=== PATIENT | male | born 1975 ===

== ENCOUNTER 2017-11-20 20:30 | Emergency (ER) | payer OTHER ==
[2017-11-20 20:39] VITALS: O2SAT 98
[2017-11-20] MEDS ORDERED: diaZEpam 10 mg/2 ml Inj IVP STA (21:06)
--- NOTE | 2017-11-20 21:12 | ED PDOC ---
HPI: Back Time Seen by Provider: 11/20/17 20:40 Chief Complaint (Nursing): Back Pain Chief Complaint (Provider): Back Pain History Per: Patient, Family (partner) History/Exam Limitations: no limitations Onset/Duration Of Symptoms: Days (x2) Current Symptoms Are (Timing): Still Present Additional Complaint(s): 42 y/o male with a PMHx of HIV presenting with partner for evaluation of lower back pain since yesterday that worsens with movement. He reports patient has been taking OTC cold/flu medication with a last dose of NyQuil 2 hours prior to arrival. Patient denies cough, fever, history of back problems or injury, falls or trauma, vomiting, dysuria, hematuria, chest pain, abdominal pain, headache, weakness, incontinence, saddle anesthesia, and numbness. Patient describes the pain as sharp, 10/10, and says it shoots across his lower and mid back. Patient also complaining of some nausea. Of note: Partner states patient was taking HIV medication for 15 years. He reports that the patient eventually developed an adverse reaction to the medication and vomits at the sight of the pill. He states the patients last dose was 9 months ago. PMD: Linwood Alvarez Past Medical History Reviewed: Historical Data, Nursing Documentation, Vital Signs Vital Signs: Last Vital Signs Temp 98.0 F 11/20/17 20:35 Pulse 88 11/20/17 20:35 Resp 16 11/20/17 20:35 BP 127/74 11/20/17 20:35 Pulse Ox 98 11/20/17 20:35 - Medical History PMH: HIV - Surgical History Surgical History: Appendectomy - Family History Family History: States: Unknown Family Hx - Social History Current smoker - smoking cessation education provided: No Alcohol: None Drugs: Denies - Home Medications Home Medications: Ambulatory Orders Medication Instructions Recorded Cyclobenzaprine [Flexeril] 10 mg PO Q8 PRN #12 tab 11/21/17 Acetaminophen [Tylenol] 1 g PO Q8H #21 capsule 11/22/17 Ibuprofen 800 mg PO Q8H #21 tablet 11/22/17 - Allergies Allergies/Adverse Reactions: Allergies Allergy/AdvReac Type Severity Reaction Status Date / Time No Known Allergies Allergy Verified 11/20/17 20:34 Review of Systems ROS Statement: Except As Marked, All Systems Reviewed And Found Negative Constitutional: Negative for: Fever, Chills Cardiovascular: Negative for: Chest Pain Respiratory: Negative for: Cough, Shortness of Breath Gastrointestinal: Positive for: Nausea. Negative for: Vomiting, Abdominal Pain Genitourinary Male: Negative for: Dysuria, Hematuria Musculoskeletal: Positive for: Back Pain Neurological: Negative for: Weakness, Numbness, Headache Physical Exam - Reviewed Nursing Documentation Reviewed: Yes Vital Signs Reviewed: Yes - Physical Exam Comments: GENERAL APPEARANCE: Patient is awake, alert, oriented x 3, in no acute distress. SKIN: Warm, dry; (-) cyanosis. EYES: (-) conjunctival pallor. ENMT: Mucous membranes moist. NECK: Supple, FROM (-) tenderness, (-) stiffness, (-) lymphadenopathy. CHEST AND RESPIRATORY: (-) rales, (-) rhonchi, (-) wheezes; breath sounds equal bilaterally. Speaking in full sentences, respirations even and nonlabored. HEART AND CARDIOVASCULAR: (-) irregularity; (-) murmur, (-) gallop. ABDOMEN AND GI: Soft; (-) tenderness (-) distention (-) guarding (-) palpable mass. (+) bilateral CVA tenderness. BACK: (+) bilateral paralumbar tenderness, (-) spasm, (-) direct bony tenderness, (-) deformity. Straight leg raise (-) bilaterally. EXTREMITIES: (-) deformity. Distal pulses good bilaterally. NEURO AND PSYCH: Mental status as above. Intact sensation bilaterally; normal strength in extension of the knees, plantar and dorsiflexion of the toes. Gait steady, speech clear. (-) facial asymmetry (-) aphasia. - Laboratory Results Result Diagrams: 11/20/17 21:59 18 21:59 Urine dip results: Positive for: Blood (trace), Ketones (trace), Bilirubin ( small), Protein (30). Negative for: Leukocyte Esterase, Nitrate, Glucose - ECG O2 Sat by Pulse Oximetry: 98 (RA) Pulse Ox Interpretation: Normal Medical Decision Making Medical Decision Makin:06 Impression: Acute back pain Plan: --EKG --CMP --Lipase --Urine dipstick --CBC --CXR --1LNS --Toradol 30mg IVP --Valium 5mg PO --Blood culture --IV insertion --Influenza A B --HIV-1, RNA --Reevaluation 0 EKG reviewed; NSR @ 66bpm (-) ST elevations, QTc 404 Udip reviewed. Urine culture and urinalysis ordered. CXR reviewed: no acute infiltrate as read by Luis ANTHONY Patient notified official radiology read will be available in 24 hours and that he will be notified of any discrepancies via phone. 2240 Urinalysis: unremarkable Flu: Negative Upon re-evaluation, patient reports nausea, epigastric abdominal pain. Patient reports no relief of back pain with Toradol and Valium. Morphine 2mg and Zofran 4mg IVP ordered. CT abd/pel with IV contrast ordered. 0005 CT reviewed, radiology report follows EXAM: CT Abdomen and Pelvis With Intravenous Contrast EXAM DATE/TIME: 11/20/2017 10:48 PM CLINICAL HISTORY: 42 years old, male; Pain; Abdominal pain; Epigastric; Prior surgery; Surgery date: 6+ months; Surgery type: Appendectomy; Additional info: Epigastric abd pain, back pain TECHNIQUE: Axial computed tomography images of the abdomen and pelvis with intravenous contrast. All CT scans at this facility use one or more dose reduction techniques, viz.: automated exposure control; ma/kV adjustment per patient size (including targeted exams where dose is matched to indication; i.e. head); or iterative reconstruction technique. CONTRAST: 90 ml of administered intravenously. COMPARISON: No relevant prior studies available. FINDINGS: Lower thorax: Minimal bilateral lower lobe bronchiectasis with some dependent atelectasis. Mild right middle lobe and to a lesser degree lingular atelectasis or scar. ABDOMEN: Liver: Slight periportal edema in the liver. Gallbladder and bile ducts: Normal. No calcified stones. No ductal dilation. Pancreas: Normal. No ductal dilation. Spleen: Normal. No splenomegaly. Adrenals: Normal. No mass. Kidneys and ureters: Normal. No hydronephrosis. Stomach and bowel: Upper normal segments of fluid-filled small bowel, primarily proximal which are nonspecific and likely transient. Appendix: The appendix is not seen. PELVIS: Bladder: Unremarkable as visualized. Reproductive: Unremarkable as visualized. ABDOMEN and PELVIS: Intraperitoneal space: Normal. No free air. No significant fluid collection. Bones/joints: No acute fracture. No dislocation. Soft tissues: Unremarkable. Vasculature: Normal. No abdominal aortic aneurysm. Lymph nodes: Upper normal right lower quadrant pericolonic node. IMPRESSION: 1. Minimal bilateral lower lobe bronchiectasis mild right middle lobe and lingular atelectasis or scar. 2. Upper normal segments of fluid-filled primarily proximal small bowel which are nonspecific. Mild enteritis is not excluded. 3. Otherwise negative CT abdomen/pelvis. Thank you for allowing us to participate in the care of your patient. Dictated and Authenticated by: Ron Archuleta MD 11/21/2017 12:03 AM Eastern Time ([place] & [place]) 0020 On re-evaluation, patient reports improvement of symptoms. Patient remains AAOx3 , in no acute distress. On exam, neck is supple, lungs CTA, cardiac RRR, abdomen is soft and non-tender, neuro exam shows no focal findings. VSS, stable for discharge. Diagnostic results d/w the patient in great detail. Dx of acute back and abdominal pain d/w the patient. Based on history, exam and diagnostic results plan will be for discharge and outpatient follow up. Advised to follow up with primary care physician in 1-2 days without fail. Advised to take medication as prescribed. Return to the emergency room at any time for any new or worsening symptoms. Patient states he fully agrees with and understands discharge instructions. States that he agrees with the plan and disposition. Verbalized and repeated discharge instructions and plan. I have given the patient opportunity to ask any additional questions. Scribe Attestation: Documented by Jose Rafael Aiken, acting as a scribe for Lilliam Smith PA-C. Provider Scribe Attestation: All medical record entries made by the scribe were at my direction and personally dictated by me. I have reviewed the chart and agree that the record accurately reflects my personal performance of the history, physical exam, medical decision making, and the department course for this patient. I have also personally directed, reviewed, and agree with the discharge instructions and disposition. Disposition - Clinical Impression Clinical Impression: Back pain, Abdominal pain, Muscle spasm of back - Patient ED Disposition Is Patient to be Admitted: No Counseled Patient/Family Regarding: Studies Performed, Diagnosis, Need For Followup, Rx Given - Disposition Referrals: Linwood Alvarez MD [Staff Provider] - Disposition: Routine/Home Disposition Time: 00:29 Condition: STABLE Additional Instructions: FOLLOW UP WITH PMD IN 1-2 DAYS WITHOUT FAIL. RETURN TO ED WITH ANY NEW OR WORSENING SYMPTOMS. Prescriptions: Cyclobenzaprine [Flexeril] 10 mg PO Q8 PRN #12 tab PRN Reason: Muscle Spasm Instructions: Low Back Pain in Adults, Acute Abdomen (Belly Pain), Adult (DC), Upper Back Pain Forms: [employer] (Lithuanian) Print Language: ALBANIAN - POA Present On Arrival: None Results - Lab Results Lab Results: 11/20/17 11/20/17 11/20/17 21:59 21:59 21:15 WBC 7.6 RBC 5.00 Hgb 13.5 Hct 40.4 MCV 80.8 MCH 27.0 MCHC 33.4 RDW 13.8 Plt Count 231 MPV 8.4 Neut % (Auto) 60.5 Lymph % (Auto) 24.9 [place] % (Auto) 12.7 H Eos % (Auto) 1.5 Baso % (Auto) 0.4 Neut # (Auto) 4.6 Lymph # (Auto) 1.9 [place] # (Auto) 1.0 H Eos # (Auto) 0.1 Baso # (Auto) 0.0 Sodium 143 Potassium 4.0 Chloride 103 Carbon Dioxide 26 Anion Gap 18 BUN 16 Creatinine 0.8 Est GFR ( Amer) > 60 Est GFR (Non-Af Amer) > 60 Random Glucose 101 Calcium 9.4 Total Bilirubin 0.6 AST 25 ALT 30 Alkaline Phosphatase 63 Total Protein 8.7 H Albumin 4.4 Globulin 4.3 H Albumin/Globulin Ratio 1.0 Lipase 36 Urine Color Lyn Urine Clarity Slighty-cloudy Urine pH 5.0 Ur Specific [place] 1.046 H Urine Protein 30 Urine Glucose (UA) Neg Urine Ketones Negative Urine Blood Negative Urine Nitrate Negative Urine Bilirubin Small Urine Urobilinogen 2.0 Ur Leukocyte Esterase Neg Urine RBC (Auto) 3 Urine Microscopic WBC 2 Calcium Oxalate Crystal Rare Urine Bacteria Rare Influenza Typ A,B (EIA) 11/20/17 21:15 WBC RBC Hgb Hct MCV MCH MCHC RDW Plt Count MPV Neut % (Auto) Lymph % (Auto) [place] % (Auto) Eos % (Auto) Baso % (Auto) Neut # (Auto) Lymph # (Auto) [place] # (Auto) Eos # (Auto) Baso # (Auto) Sodium Potassium Chloride Carbon Dioxide Anion Gap BUN Creatinine Est GFR ( Amer) Est GFR (Non-Af Amer) Random Glucose Calcium Total Bilirubin AST ALT Alkaline Phosphatase Total Protein Albumin Globulin Albumin/Globulin Ratio Lipase Urine Color Urine Clarity Urine pH Ur Specific [place] Urine Protein Urine Glucose (UA) Urine Ketones Urine Blood Urine Nitrate Urine Bilirubin Urine Urobilinogen Ur Leukocyte Esterase Urine RBC (Auto) Urine Microscopic WBC Calcium Oxalate Crystal Urine Bacteria Influenza Typ A,B (EIA) Negative for flu a/b
[2017-11-20] MEDS ORDERED: Sodium Chloride 0.9% 1,000 ML IV SCH (21:15)
[2017-11-20 21:41] LABS: URINE BACTERIA RARE (<OCC); URINE BILIRUBIN SMALL (NEGATIVE); URINE BLOOD NEGATIVE (NEGATIVE); URINE CALCIUM OXALATE CRYSTALS RARE /hpf (<OCC); URINE CLARITY SLIGHTY-CLOUDY (Clear); URINE COLOR AMBER (YELLOW); URINE GLUCOSE (UA) NEG (Normal); URINE LEUKOCYTE ESTERASE NEG Leu/uL (Negative); URINE PROTEIN 30 mg/dL (NEGATIVE)
[2017-11-20 22:03] LABS: BASO % 0.4 % (0.0-2.0); EOS # 0.1 K/uL (0.0-0.7); EOS % 1.5 % (0.0-4.0); HEMOGLOBIN 13.5 g/dL (12.0-18.0); LYMPH # 1.9 K/uL (1.0-4.3); LYMPH % 24.9 % (20.0-40.0); MEAN CELL VOLUME 80.8 fl (80.0-94.0); MEAN CORPUSCULAR HGB CONC 33.4 g/dL (33.0-37.0); MEAN PLATELET VOLUME 8.4 fl (7.2-11.7); MONO % 12.7 % (0.0-10.0); NEUT # 4.6 K/uL (1.8-7.0); NEUT % 60.5 % (50.0-75.0); RED CELL DISTRIBUTION WIDTH 13.8 % (11.5-14.5); WHITE BLOOD COUNT 7.6 K/uL (4.8-10.8)
[2017-11-20 22:12] LABS: ALBUMIN 4.4 g/dL (3.5-5.0); ALT/SGPT 30 U/L (21-72); AST/SGOT 25 U/L (17-59); BLOOD UREA NITROGEN 16 mg/dl (9-20); CALCIUM 9.4 mg/dL (8.4-10.2); GFR AFRICAN-AMERICAN > 60; GFR NON-AFRICAN AMERICAN > 60; LIPASE 36 U/L (23-300)
[2017-11-20] MEDS ORDERED: Sodium Chloride 0.9% 50 ML IV ONE (23:02)
[2017-11-20] MEDS ORDERED: Iohexol 300 100 ML IJ ONE (23:02)
[2017-11-21 00:52] VITALS: BP 129/77; PULSE 65; RESP 18; TEMP 97.7
--- NOTE | 2017-11-21 08:40 | CARD ---
APPROVED REPORT EKG Measurement Heart [id number] <Conclusion> Normal sinus rhythm Rightward axis Borderline ECG
--- NOTE | 2017-11-21 10:05 | RAD ---
HISTORY: SOB COMPARISON: No prior. TECHNIQUE: Chest PA and lateral FINDINGS: LUNGS: No active pulmonary disease. PLEURA: No significant pleural effusion identified. No pneumothorax apparent. CARDIOVASCULAR: Normal. OSSEOUS STRUCTURES: No significant abnormalities. VISUALIZED UPPER ABDOMEN: Normal. OTHER FINDINGS: None. IMPRESSION: No active disease.
[2017-11-21] MEDS ORDERED: Morphine 4 MG/ML VIAL ONE (10:06)
--- NOTE | 2017-11-21 12:32 | CT ---
PROCEDURE: CT Abdomen and Pelvis with contrast HISTORY: Epigastric abdominal pain, back pain. COMPARISON: None. TECHNIQUE: Contrast dose: 90 cc Omnipaque 300. Radiation dose: Total exam DLP = 244.68 mGy-cm. This CT exam was performed using one or more of the following dose reduction techniques: Automated exposure control, adjustment of the mA and/or kV according to patient size, and/or use of iterative reconstruction technique. FINDINGS: LOWER THORAX: Incompletely visualized right middle lobe infiltrate. Subsegmental infiltrate lingula also incompletely visualized. LIVER: Unremarkable. No gross lesion or ductal dilatation. GALLBLADDER AND BILE DUCTS: Unremarkable. PANCREAS: Unremarkable. No gross lesion or ductal dilatation. SPLEEN: Unremarkable. ADRENALS: Unremarkable. No mass. KIDNEYS AND URETERS: Unremarkable. No hydronephrosis. No solid mass. VASCULATURE: Unremarkable. No aortic aneurysm. BOWEL: Dilated and fluid-filled loops of proximal small bowel without obstructing lesion. Similar less pronounced changes identified distally. The findings are most likely reflective enteritis. APPENDIX: Normal appendix. PERITONEUM: Unremarkable. No free fluid. No free air. LYMPH NODES: Unremarkable. No enlarged lymph nodes. BLADDER: Unremarkable. REPRODUCTIVE: Unremarkable. BONES: No acute fracture. OTHER FINDINGS: None. IMPRESSION: Right middle lobe infiltrate, incompletely visualized. Similar less pronounced changes in the lingula. Follow-up to resolution recommended. Findings suggestive of mild enteritis without obstruction. Concordant results (preliminary interpretation) provided by [facility]. Procedure Completed: 23:18 Preliminary ([facility]) Report: Dictated and Authenticated: 00:03 November 21, 2017. Final Interpretation: 12:November 21, 2017.
== END 2017-11-21 00:54 | disposition home or self-care (01) ==
LOC: H.ER 20:30
DX: M54.9 Dorsalgia, unspecified (principal); M62.830 Muscle spasm of back; R10.9 Unspecified abdominal pain; J47.9 Bronchiectasis, uncomplicated
CPT/HCPCS: 71046; 74177; 80053; 81003; 83690; 85025; 87040; 87086; 87536; 87804; 93005; 96374; 96375; 99283; J1885; J2270; J2405; J7030; Q9967

== ENCOUNTER 2017-11-21 09:09 | Observation (INO) | payer OTHER ==
[2017-11-21 09:15] VITALS: BMI 22.2
[2017-11-21] MEDS ORDERED: Sodium Chloride 0.9% 1,000 ML IV STA (09:54)
[2017-11-21] MEDS ORDERED: Morphine 4 MG/ML VIAL IVP ONE ×3 (09:54→19:00)
[2017-11-21 10:35] LABS: PARTIAL THROMBOPLASTIN TIME 34.2 Seconds (25.6-37.1); PROTHROMBIN TIME 11.5 Seconds (9.8-13.1)
[2017-11-21 10:55] LABS: ALBUMIN 4.1 g/dL (3.5-5.0); ALT/SGPT 28 U/L (21-72); AST/SGOT 24 U/L (17-59); BLOOD UREA NITROGEN 12 mg/dl (9-20); CALCIUM 8.9 mg/dL (8.4-10.2); GFR AFRICAN-AMERICAN > 60; GFR NON-AFRICAN AMERICAN > 60; LIPASE 18 U/L (23-300)
--- NOTE | 2017-11-21 11:06 | US ---
HISTORY: epigastirc pain COMPARISON: None. TECHNIQUE: Sonographic evaluation of the right upper quadrant of the abdomen. FINDINGS: LIVER: Measures 16.0 cm in length. Mildly heterogeneous echogenicity of the liver parenchyma. No mass. No intrahepatic bile duct dilatation. GALLBLADDER: Unremarkable. No gallstones. COMMON BILE DUCT: Measures mm. No stones. No dilatation. PANCREAS: Unremarkable as visualized. No mass. No ductal dilatation. RIGHT KIDNEY: Measures cm in length. Normal echogenicity. No calculus, mass, or hydronephrosis. AORTA: No aneurysmal dilatation. IVC: Unremarkable. OTHER FINDINGS: None . IMPRESSION: No evidence of cholelithiasis or cholecystitis.
--- NOTE | 2017-11-21 11:42 | ED PDOC ---
HPI: Abdomen Time Seen by Provider: 11/21/17 09:29 Chief Complaint (Nursing): Abdominal Pain Chief Complaint (Provider): Abdominal Pain and Back Pain History Per: Patient History/Exam Limitations: no limitations Onset/Duration Of Symptoms: Days (x2) Outside of [place] travel?: No Current Symptoms Are (Timing): Still Present Location Of Pain/Discomfort: Epigastric Quality Of Discomfort: "Pain" Associated Symptoms: denies: Fever, Diarrhea, Chest Pain, Urinary Symptoms Exacerbating Factors: None Alleviating Factors: None Additional Complaint(s): 42 yea old male presents to the emergency department complaining of back pain and abdominal pain x2 days. Patient states that the pain was initially in his mid back but it now radiates to his abdomen in the epigastric area. He further reports that he was seen here in the ED yesterday for similar symptoms and had a CT performed and was discharged home with prescription medications. Patient states that he took the medications but the pain still persists. Patient also states that he gets short of breath when the pain is really bad. Of note: Patient reports that he has a past medical history of HIV but stopped taking his medication 9 months ago because of an adverse reaction to the side effects. He also states that he has not had his CD4 count checked. Past Medical History Reviewed: Historical Data, Nursing Documentation, Vital Signs Vital Signs: Last Vital Signs Temp 97.7 F 11/22/17 08:35 Pulse 56 L 11/22/17 08:35 Resp 18 11/22/17 08:35 BP 136/78 11/22/17 08:35 Pulse Ox 98 11/22/17 08:35 - Medical History PMH: HIV - Surgical History Surgical History: Appendectomy - Family History Family History: States: Unknown Family Hx - Living Arrangements Living Arrangements: With Family - Social History Current smoker - smoking cessation education provided: No Ex-Smoker (has not smoked in the last 12 months): No Alcohol: None Drugs: Denies - Home Medications Home Medications: Ambulatory Orders Medication Instructions Recorded Cyclobenzaprine [Flexeril] 10 mg PO Q8 PRN #12 tab 11/21/17 Acetaminophen [Tylenol] 1 g PO Q8H #21 capsule 11/22/17 Ibuprofen 800 mg PO Q8H #21 tablet 11/22/17 - Allergies Allergies/Adverse Reactions: Allergies Allergy/AdvReac Type Severity Reaction Status Date / Time No Known Allergies Allergy Verified 11/20/17 20:34 Review of Systems ROS Statement: Except As Marked, All Systems Reviewed And Found Negative Constitutional: Negative for: Fever Respiratory: Positive for: Shortness of Breath Gastrointestinal: Positive for: Abdominal Pain. Negative for: Diarrhea, Other ( Rectal Bleeding) Musculoskeletal: Positive for: Back Pain Physical Exam - Reviewed Nursing Documentation Reviewed: Yes Vital Signs Reviewed: Yes - Physical Exam Appears: Positive for: No Acute Distress, Uncomfortable Head Exam: Positive for: ATRAUMATIC, NORMAL INSPECTION, NORMOCEPHALIC Skin: Positive for: Normal Color, Warm, Dry. Negative for: Rash Eye Exam: Positive for: Normal appearance, EOMI, PERRL. Negative for: Nystagmus ENT: Positive for: Normal ENT Inspection. Negative for: Nasal Congestion, Tonsillar Exudate, Tonsillar Swelling Neck: Positive for: Normal, Painless ROM, Supple Cardiovascular/Chest: Positive for: Regular Rate, Rhythm, Chest Non Tender. Negative for: Tachycardia Respiratory: Positive for: Normal Breath Sounds. Negative for: Rales, Rhonchi, Wheezing, Respiratory Distress Gastrointestinal/Abdominal: Positive for: Bowel Sounds, Soft, Tenderness (mild epigastric tenderness). Negative for: Mass, Guarding, Rebound Back: Positive for: L CVA Tenderness, R CVA Tenderness, Other (tenderness on palpation to mid back). Negative for: Vertebral Tenderness Extremity: Positive for: Normal ROM. Negative for: Tenderness, Calf Tenderness , Deformity, Swelling Neurologic/Psych: Positive for: Alert, Oriented, Gait. Negative for: Motor/ Sensory Deficits - Laboratory Results Result Diagrams: 11/22/17 05:45 11/22/17 05:45 - ECG O2 Sat by Pulse Oximetry: 98 (RA) Pulse Ox Interpretation: Normal Medical Decision Making Medical Decision Making: CT from previous visit reviewed and is as follows: 0005 11/21/2017 CT reviewed, radiology report follows EXAM: CT Abdomen and Pelvis With Intravenous Contrast EXAM DATE/TIME: 11/20/2017 10:48 PM CLINICAL HISTORY: 42 years old, male; Pain; Abdominal pain; Epigastric; Prior surgery; Surgery date: 6+ months; Surgery type: Appendectomy; Additional info: Epigastric abd pain, back pain TECHNIQUE: Axial computed tomography images of the abdomen and pelvis with intravenous contrast. All CT scans at this facility use one or more dose reduction techniques, viz.: automated exposure control; ma/kV adjustment per patient size (including targeted exams where dose is matched to indication; i.e. head); or iterative reconstruction technique. CONTRAST: 90 ml of [id number] administered intravenously. COMPARISON: No relevant prior studies available. FINDINGS: Lower thorax: Minimal bilateral lower lobe bronchiectasis with some dependent atelectasis. Mild right middle lobe and to a lesser degree lingular atelectasis or scar. ABDOMEN: Liver: Slight periportal edema in the liver. Gallbladder and bile ducts: Normal. No calcified stones. No ductal dilation. Pancreas: Normal. No ductal dilation. Spleen: Normal. No splenomegaly. Adrenals: Normal. No mass. Kidneys and ureters: Normal. No hydronephrosis. Stomach and bowel: Upper normal segments of fluid-filled small bowel, primarily proximal which are nonspecific and likely transient. Appendix: The appendix is not seen. PELVIS: Bladder: Unremarkable as visualized. Reproductive: Unremarkable as visualized. ABDOMEN and PELVIS: Intraperitoneal space: Normal. No free air. No significant fluid collection. Bones/joints: No acute fracture. No dislocation. Soft tissues: Unremarkable. Vasculature: Normal. No abdominal aortic aneurysm. Lymph nodes: Upper normal right lower quadrant pericolonic node. IMPRESSION: 1. Minimal bilateral lower lobe bronchiectasis mild right middle lobe and lingular atelectasis or scar. 2. Upper normal segments of fluid-filled primarily proximal small bowel which are nonspecific. Mild enteritis is not excluded. 3. Otherwise negative CT abdomen/pelvis. Thank you for allowing us to participate in the care of your patient. Dictated and Authenticated by: Ron Archuleta MD 11/21/2017 12:03 AM Eastern Time ([place] & [place]) 0955 Initial Impression 42 year old male presenting with back lance and abdominal pain Differentials: Acute pancreatitis, peptic ulcer disease, disc herniation, hemorrhagic aneurysm, possible pulmonary embolism, Thoracic lumbar spine epidural, abscess vs hematoma, acute cholecystitis. Initial Plan: * EKG * CMP * Lipase * Troponin * CBC * D-dimer [COAG] * PTT * Prothrombin Time * CD4/CD8 * Morphine 4mg IVP * NS 1000 mls IV 1000 mls/hr * Morphine 4mg IV * US Gallbladder * Reevaluation 1105 HISTORY: epigastirc pain COMPARISON: None. TECHNIQUE: Sonographic evaluation of the right upper quadrant of the abdomen. FINDINGS: LIVER: Measures 16.0 cm in length. Mildly heterogeneous echogenicity of the liver parenchyma. No mass. No intrahepatic bile duct dilatation. GALLBLADDER: Unremarkable. No gallstones. COMMON BILE DUCT: Measures mm. No stones. No dilatation. PANCREAS: Unremarkable as visualized. No mass. No ductal dilatation. RIGHT KIDNEY: Measures cm in length. Normal echogenicity. No calculus, mass, or hydronephrosis. AORTA: No aneurysmal dilatation. IVC: Unremarkable. OTHER FINDINGS: None . IMPRESSION: No evidence of cholelithiasis or cholecystitis. 1523 PROCEDURE: CT Chest with contrast (Pulmonary Angiogram) HISTORY: chest pain COMPARISON: None available. TECHNIQUE: Axial computed tomography images were obtained of the chest in the pulmonary arterial phase of enhancement. Coronal and sagittal reformatted images were created and reviewed. Intravenous contrast dose: 99 cc Visipaque 320 Radiation dose: Total exam DLP = 312.19 mGy-cm. This CT exam was performed using one or more of the following dose reduction techniques: Automated exposure control, adjustment of the mA and/or kV according to patient size, and/or use of iterative reconstruction technique. FINDINGS: PULMONARY ARTERIES: Unremarkable. No pulmonary embolism. AORTA: No acute findings. No thoracic aortic aneurysm. LUNGS: Pleural-based soft tissue density in right middle lobe, possibly atelectasis. No evidence of pneumonia. No pulmonary mass elsewhere. PLEURAL SPACES: Unremarkable. No effusion or pneuomothorax. HEART: Unremarkable. No cardiomegaly. No significant pericardial effusion. LYMPH NODES: No lymphadenopathy. BONES, CHEST WALL: Mild bilateral gynecomastia. OTHER FINDINGS: Unremarkable. IMPRESSION: No evidence pulmonary embolism. Pleural-based soft tissue density in right middle lobe may reflect atelectasis. Follow-up recommended. Incidental mild bilateral gynecomastia. [address] Jimenez for admission and discussed with resident team. Patient used to be patient but no recent visits. upon discussion with Dr Jimenez and Dr Frank Gautam patient will be admitted to service for continuity care. Documented by Alondra Harris acting as a scribe for Breezy Cisneros MD. All medical record entries made by the Scribe were at my direction and personally dictated by me. I have reviewed the chart and agree that the record accurately reflects my personal performance of the history, physical exam, medical decision making, and the department course for this patient. I have also personally directed, reviewed, and agree with the discharge instructions and disposition. Disposition - Clinical Impression Clinical Impression: Abdominal pain, Lung infiltrate on CT, Back pain - Patient ED Disposition Is Patient to be Admitted: Yes Discussed With : Linwood Condon Doctor Will See Patient In The: Hospital Counseled Patient/Family Regarding: Studies Performed, Diagnosis - Disposition Disposition Time: 17:00 Condition: FAIR - Pt Status Changed To: Hospital Disposition Of: Observation - POA Present On Arrival: None
[2017-11-21 11:50] LABS: BASO % 0.5 % (0.0-2.0); EOS # 0.1 K/uL (0.0-0.7); EOS % 0.7 % (0.0-4.0); HEMOGLOBIN 12.7 g/dL (12.0-18.0); LYMPH # 1.6 K/uL (1.0-4.3); LYMPH % 20.6 % (20.0-40.0); MEAN CELL VOLUME 81.4 fl (80.0-94.0); MEAN CORPUSCULAR HEMOGLOBIN 26.8 pg (27.0-31.0); MEAN PLATELET VOLUME 9.2 fl (7.2-11.7); MONO # 0.9 K/uL (0.0-0.8); NEUT # 5.2 K/uL (1.8-7.0); NEUT % 67.2 % (50.0-75.0); NRBC % 0.1 % (0.0-0.0); RBC 4.74 Mil/uL (4.40-5.90); RED CELL DISTRIBUTION WIDTH 13.6 % (11.5-14.5); WHITE BLOOD COUNT 7.8 K/uL (4.8-10.8)
[2017-11-21] MEDS ORDERED: Iodixanol 320 MG/ML 100 ML BOTTLE IV ONE (12:48)
[2017-11-21] MEDS ORDERED: Sodium Chloride 0.9% 50 ML IV ONE (12:48)
--- NOTE | 2017-11-21 15:24 | CT ---
PROCEDURE: CT Chest with contrast (Pulmonary Angiogram) HISTORY: chest pain COMPARISON: None available. TECHNIQUE: Axial computed tomography images were obtained of the chest in the pulmonary arterial phase of enhancement. Coronal and sagittal reformatted images were created and reviewed. Intravenous contrast dose: 99 cc Visipaque 320 Radiation dose: Total exam DLP = 312.19 mGy-cm. This CT exam was performed using one or more of the following dose reduction techniques: Automated exposure control, adjustment of the mA and/or kV according to patient size, and/or use of iterative reconstruction technique. FINDINGS: PULMONARY ARTERIES: Unremarkable. No pulmonary embolism. AORTA: No acute findings. No thoracic aortic aneurysm. LUNGS: Pleural-based soft tissue density in right middle lobe, possibly atelectasis. No evidence of pneumonia. No pulmonary mass elsewhere. PLEURAL SPACES: Unremarkable. No effusion or pneuomothorax. HEART: Unremarkable. No cardiomegaly. No significant pericardial effusion. LYMPH NODES: No lymphadenopathy. BONES, CHEST WALL: Mild bilateral gynecomastia. OTHER FINDINGS: Unremarkable. IMPRESSION: No evidence pulmonary embolism. Pleural-based soft tissue density in right middle lobe may reflect atelectasis. Follow-up recommended. Incidental mild bilateral gynecomastia.
[2017-11-21] MEDS ORDERED: Alum-Mag Hydrox-Simethicone Susp (30 mL) PO ONE (15:49)
[2017-11-21] MEDS ORDERED: Azithromycin 500 MG in Sodium Chloride 0.9% 250 ML IVPB STA (15:52)
[2017-11-21] MEDS ORDERED: Famotidine 20mg/50ml 20 MG/50 ML BAG IVPB ONE ×2 (16:00→17:53)
[2017-11-21] MEDS ORDERED: Alum-Mag Hydrox-Simethicone Susp (30 mL) ONE (17:53)
[2017-11-21] MEDS ORDERED: cefTRIAXone (Rocephin) 1 gm Inj ONE (18:07)
[2017-11-21 18:21] VITALS: RESP 18
[2017-11-21] MEDS ORDERED: Oxycodone/Acetaminophen 5/325 mg Tab PO PRN (18:52)
--- NOTE | 2017-11-21 19:05 | MRI ---
PROCEDURE: MR THORACIC SPINE WITHOUT CONTRAST HISTORY: intractable back pain COMPARISON: None available. TECHNIQUE: Multiecho multiplanar sequences were performed through the thoracic spine without the use of intravenous contrast. FINDINGS: ALIGNMENT: Normal thoracic spinal alignment. Normal thoracic kyphosis. VERTEBRA: Vertebral body height are preserved. MARROW: Marrow signal unremarkable. PARASPINAL SOFT TISSUES: Unremarkable. CORD: Unremarkable thoracic cord. No volume loss, signal abnormality or syrinx. DISCS: There is a small central disc herniation identified at T7-8 indenting the ventral cord and likely impinging ventral nerve roots (T8) but without causing significant central canal stenosis. Limited extrusion is seen cephalad and slightly inferior to the T7-8 disc interspace at the anterior epidural space. The remaining intervertebral discs are contained within the annulus although diffuse desiccation is appreciated throughout most of the upper mid thoracic intervertebral discs, indicative of degeneration. OTHER FINDINGS: None. IMPRESSION: A small centered T7-8 disc herniation is identified with superior inferior and inferior extrusion, indenting the ventral cord and likely impinging bilateral T8 nerve roots without significant stenosis resulting. No additional disc herniation. No stenosis throughout the exam. No fracture or spondylolisthesis identified.
--- NOTE | 2017-11-21 19:10 | MRI ---
PROCEDURE: MR LUMBAR SPINE WITHOUT CONTRAST HISTORY: intractable back pain COMPARISON: None available. TECHNIQUE: Multiecho multiplanar sequences were performed through the lumbar spine without the use of intravenous contrast. FINDINGS: Normal lumbar lordosis. Vertebral body heights are preserved. Marrow signal unremarkable. Conus medullaris unremarkable at the level of L1. Paraspinal soft tissues are unremarkable. T12-L1: No disc herniation, spinal canal stenosis or neural foraminal narrowing. L1-2: No disc herniation, spinal canal stenosis or neural foraminal narrowing. L2-3: No disc herniation, spinal canal stenosis or neural foraminal narrowing. L3-4: No disc herniation, spinal canal stenosis or neural foraminal narrowing. L4-5: No disc herniation, spinal canal stenosis or neural foraminal narrowing. Limited disc bulging flattens the ventral thecal sac. L5-S1: No disc herniation, spinal canal stenosis or neural foraminal narrowing. Limited disc bulging is identified as well as a relatively prominent tear of the posterior annulus. OTHER FINDINGS: Incidental note is made of a fluid containing structure in the right upper quadrant at the same levels the upper pole right kidney but just anterior to it probably reflecting a distended gallbladder. IMPRESSION: No disc herniation, central canal or stenosis identified. Limited disc bulging is seen at L4-5 and L5-S1 levels without significant stenosis resulting. Relatively large annular tear seen at the posterior segment of the annulus at L5-S1. Likely distended gallbladder at the right upper quadrant incidentally noted. No suspicious findings were identified in limited right upper quadrant abdominal sonography earlier today 11/21/2017 or in the abdomen pelvis CT 11/20/2017. .
--- NOTE | 2017-11-21 19:52 | CP.PCM.HP ---
History of Present Illness - History of Present Illness History of Present Illness: CC: intractable back and abdominal pain HPI: 42 y/o man w/ pmh of HIV (AIDS status unknown) presents to the ED w/ intractable back and abdominal pain. Patient reports pain started 2 days ago simultaneously. Patient reports back pain is at the lower back, sharp in nature , constant and radiating epigastric area. Patient reports abdominal pain in the epigastric area, radiating to back, sharp in nature, with associated nausea. Patient denies vomit, diarrhea, dysuria, or fever. Patient denies any previous episodes or any precipitating events. Patient denies saddle paresthesia, urinary/bowel incontinence, or lower extremity weakness. Patient reports [facility] but can't recall a name. Patient reports he has been off anti-retroviral therapy for ED course: vitals: 97.7 F, 62 beats/min, 137/77 mm Hg, resp 18, O2 96% room air CBC: 7.8>12.7/38.6<214 CMP: 141/3.9, 104/29, 12/0.7, glucose 108, AST, 24, ALT, 28, alk phos 67 troponin <0.0120 lipase 18 UA: negative leukocyte esterase, nitrates, glucose, ketones, blood Influenza A/B negative CXR: no active disease EKG: sinus bradycardia, no acute ST elevation/depression CT abdomen/pelvis IV contrast: right middle lobe infiltrate U/S abdomen: no cholelithiasis, no cholecystitis CT chest: no evidence of PE MRI lumbar spine: no disc herniation, central canal or stenosis. Large annular tear posterior segment of annulus of L5-S1 MRI thoracic spine: small centered T7-8 disc herniation given morphine 4 mg IV x3 given ceftriaxone 1 gm IV given azithromycin 500 mg IV PM[facility]: [facility]doesn't remember [facility]) PMH: HIV (AIDS status unknown) meds: see med list allergies: NKDA PSH: appendectomy Fam: father DM2 SOC: denies smoking, alcohol, and drugs ROS: 12 points assessed and negative unless otherwise reported in HPI Present on Admission - Present on Admission Any Indicators Present on Admission: No History of DVT/PE: No History of Uncontrolled Diabetes: No Urinary Catheter: No Decubitus Ulcer Present: No Review of Systems - Review of Systems All systems: reviewed and no additional remarkable complaints except - Constitutional Constitutional: absent: Chills, Fever - EENT Eyes: absent: Change in Vision - Cardiovascular Cardiovascular: absent: Chest Pain - Respiratory Respiratory: absent: Dyspnea - Gastrointestinal Gastrointestinal: As Per HPI, Abdominal Pain, Nausea. absent: Diarrhea, Hematochezia, Melena, Vomiting - Genitourinary Genitourinary: absent: Dysuria - Integumentary Integumentary: absent: Rash - Neurological Neurological: absent: Dizziness, Headaches Past Patient History - Past Social History Alcohol: None Drugs: Denies - HEMATOLOGICAL/ONCOLOGICAL Hx Blood Disorders: Yes (HIV) - PSYCHIATRIC Hx Substance Use: No - SURGICAL HISTORY Hx Appendectomy: Yes Meds Allergies/Adverse Reactions: Allergies Allergy/AdvReac Type Severity Reaction Status Date / Time No Known Allergies Allergy Verified 11/20/17 20:34 Physical Exam - Constitutional Appears: Non-toxic, No Acute Distress - Head Exam Head Exam: ATRAUMATIC, NORMAL INSPECTION, NORMOCEPHALIC - Eye Exam Eye Exam: Normal appearance - ENT Exam ENT Exam: Mucous Membranes Moist - Neck Exam Neck exam: Positive for: Full Rom. Negative for: Tenderness - Respiratory Exam Respiratory Exam: Rhonchi (mild right sided). absent: Accessory Muscle Use, Decreased Breath Sounds, Rales, Wheezes, Respiratory Distress - Cardiovascular Exam Cardiovascular Exam: REGULAR RHYTHM. absent: Tachycardia - GI/Abdominal Exam GI & Abdominal Exam: Normal Bowel Sounds, Soft, Tenderness. absent: Distended, Guarding, Mass, Rebound - Extremities Exam Extremities exam: Negative for: calf tenderness - Back Exam Back exam: muscle spasm, paraspinal tenderness. absent: CVA tenderness (L), CVA tenderness (R), rash noted, vertebral tenderness - Neurological Exam Neurological exam: Alert, CN II-XII Intact, Oriented x3 - Skin Skin Exam: Dry, Intact, Normal Color, Warm Results - Vital Signs Recent Vital Signs: Last Vital Signs Temp 97.7 F 11/21/17 19:11 Pulse 62 11/21/17 19:11 Resp 18 11/21/17 19:11 BP 137/77 11/21/17 19:11 Pulse Ox 96 11/21/17 19:11 - Labs Result Diagrams: 11/21/17 10:22 11/21/17 10:22 Labs: Laboratory Results - last 24 hr 11/21/17 11/21/17 11/21/17 10:22 10:22 10:22 WBC 7.8 RBC 4.74 Hgb 12.7 Hct 38.6 MCV 81.4 MCH 26.8 L MCHC 33.0 RDW 13.6 Plt Count 214 MPV 9.2 Neut % (Auto) 67.2 Lymph % (Auto) 20.6 Benzie % (Auto) 11.0 H Eos % (Auto) 0.7 Baso % (Auto) 0.5 Neut # (Auto) 5.2 Lymph # (Auto) 1.6 Benzie # (Auto) 0.9 H Eos # (Auto) 0.1 Baso # (Auto) 0.0 PT 11.5 INR 1.0 APTT 34.2 D-Dimer, Quantitative 312 H Sodium 141 Potassium 3.9 Chloride 104 Carbon Dioxide 29 Anion Gap 12 BUN 12 Creatinine 0.7 L Est GFR ( Amer) > 60 Est GFR (Non-Af Amer) > 60 Random Glucose 108 Calcium 8.9 Total Bilirubin 0.6 AST 24 ALT 28 Alkaline Phosphatase 67 Troponin I < 0.0120 Total Protein 8.3 H Albumin 4.1 Globulin 4.2 H Albumin/Globulin Ratio 1.0 Lipase 18 L Assessment & Plan - Assessment and Plan (Free Text) Assessment: 42 y/o man w/ pmh of HIV (AIDS status unknown) presents to the ED w/ intractable back and abdominal pain. Plan: Back pain - most likely due to disc herniation seen on thoracic MRI vs. tear seen on lumbar MRI vs. right middle lobe infiltrate - vitals: 97.7 F, 62 beats/min, 137/77 mm Hg, resp 18, O2 96% room air - CBC: 7.8>12.7/38.6<214 - CMP: 141/3.9, 104/29, 12/0.7, glucose 108, AST, 24, ALT, 28, alk phos 67 - troponin <0.0120 - lipase 18 - UA: negative leukocyte esterase, nitrates, glucose, ketones, blood - Influenza A/B negative - CXR: no active disease - EKG: sinus bradycardia, no acute ST elevation/depression - CT abdomen/pelvis IV contrast: right middle lobe infiltrate - U/S abdomen: no cholelithiasis, no cholecystitis - CT chest: no evidence of PE, no aortic aneurysm - MRI lumbar spine: no disc herniation, central canal or stenosis. Large annular tear posterior segment of annulus of L5-S1 - MRI thoracic spine: small centered T7-8 disc herniation - admit to Med/Surg - monitor for acute change Abdominal pain - possibly secondary to acid reflux vs gastritis - protonix 40 mg PO daily Pneumonia - most likely CAP - right middle lobe seen on CT - start rocephin 1 gm IV daily - start azithromycin 500 mg IV daily HIV - AIDS status unknown - poor adherence and follow up - CBC WNL - f/u CD4/CD8 Prophylactic measures - DVT lovenox 40 mg SC daily
[2017-11-21] MEDS ORDERED: Azithromycin 500 MG in Sodium Chloride 0.9% 250 ML IVPB SCH (21:00)
[2017-11-22 06:25] LABS: BASO % 0.2 % (0.0-2.0); EOS % 0.4 % (0.0-4.0); HEMOGLOBIN 12.6 g/dL (12.0-18.0); LYMPH # 1.5 K/uL (1.0-4.3); LYMPH % 17.6 % (20.0-40.0); MEAN CELL VOLUME 81.3 fl (80.0-94.0); MEAN CORPUSCULAR HGB CONC 33.2 g/dL (33.0-37.0); MEAN PLATELET VOLUME 8.8 fl (7.2-11.7); MONO # 0.8 K/uL (0.0-0.8); MONO % 9.3 % (0.0-10.0); NEUT # 6.3 K/uL (1.8-7.0); NEUT % 72.5 % (50.0-75.0); NRBC % 0.1 % (0.0-0.0); RBC 4.68 Mil/uL (4.40-5.90); RED CELL DISTRIBUTION WIDTH 13.7 % (11.5-14.5); WHITE BLOOD COUNT 8.7 K/uL (4.8-10.8)
--- NOTE | 2017-11-22 07:50 | CP.PCM.PN ---
Subjective - Date & Time of Evaluation Date of Evaluation: 11/22/17 Time of Evaluation: 07:25 - Subjective Subjective: Patient was seen and examined this morning at bedside. NAD, no acute event overnight. Objective - Vital Signs/Intake and Output Vital Signs (last 24 hours): Temp Pulse Resp BP Pulse Ox 98.2 F 67 18 131/75 95 11/22/17 00:01 11/22/17 00:01 11/22/17 00:01 11/22/17 00:01 11/22/17 00:01 - Medications Medications: Current Medications Acetaminophen (Tylenol 325mg Tab) 975 mg PO Q6 EMILIO Enoxaparin Sodium (Lovenox) 40 mg SC DAILY EMILIO PRN Reason: Protocol Hydromorphone HCl (Dilaudid) 0.5 mg IVP Q4 PRN PRN Reason: Pain, severe (8-10) Stop: 11/24/17 07:07 Ketorolac Tromethamine (Toradol) 30 mg IVP Q6 PRN PRN Reason: Pain, moderate (4-7) Stop: 11/23/17 22:01 Last Admin: 11/22/17 07:21 Dose: 30 mg - Labs Labs: 11/22/17 05:45 11/21/17 10:22 PT 11.5 Seconds (9.8-13.1) 11/21/17 10:22 INR 1.0 (0.9-1.2) 11/21/17 10:22 APTT 34.2 Seconds (25.6-37.1) 11/21/17 10:22
[2017-11-22 08:13] LABS: BLOOD UREA NITROGEN 6 mg/dl (9-20); GFR AFRICAN-AMERICAN > 60; GFR NON-AFRICAN AMERICAN > 60
[2017-11-22 08:14] LABS: ALBUMIN 3.9 g/dL (3.5-5.0); ALT/SGPT 28 U/L (21-72); AST/SGOT 32 U/L (17-59); CALCIUM 8.8 mg/dL (8.4-10.2)
[2017-11-22] MEDS: HYDROmorphone 0.5 mg/0.5 ml ISec IVP PRN ×2 (08:29→12:28)
[2017-11-22 08:35] VITALS: BP 136/78; PULSE 56; TEMP 97.7; O2SAT 98
[2017-11-22] MEDS ORDERED: Enoxaparin 40 mg Syringe SC SCH (09:00)
[2017-11-22] MEDS ORDERED: Pantoprazole 40 mg EC Tab PO SCH (09:00)
[2017-11-22 09:41] LABS: ALB/GLOB RATIO 1.1 (1.0-2.1)
--- NOTE | 2017-11-22 09:50 | CARD ---
APPROVED REPORT EKG Measurement Heart [id number] MD [id number] <Conclusion> Sinus bradycardia Incomplete non specific IVCD Otherwise normal ECG
--- NOTE | 2017-11-22 11:48 | CP.PCM.DIS ---
Provider - Provider Date of Admission: 11/21/17 17:05 Attending physician: Porsche Nassar MD Primary care physician: [facility] Consults: None Time Spent in preparation of Discharge (in minutes): 40 Diagnosis - Discharge Diagnosis (1) Annular disc tear Status: Acute Comment: Large annular tear posterior segment of annulus of L5-S1 (2) Abdominal pain Status: Acute (3) Back pain Status: Acute Hospital Course - Lab Results Lab Results: Most Recent Lab Values WBC 8.7 K/uL (4.8-10.8) 11/22/17 05:45 RBC 4.68 Mil/uL (4.40-5.90) 11/22/17 05:45 Hgb 12.6 g/dL (12.0-18.0) 11/22/17 05:45 Hct 38.0 % (35.0-51.0) 11/22/17 05:45 MCV 81.3 fl (80.0-94.0) 11/22/17 05:45 MCH 27.0 pg (27.0-31.0) 11/22/17 05:45 MCHC 33.2 g/dL (33.0-37.0) 11/22/17 05:45 RDW 13.7 % (11.5-14.5) 11/22/17 05:45 Plt Count 208 K/uL (130-400) 11/22/17 05:45 MPV 8.8 fl (7.2-11.7) 11/22/17 05:45 Neut % (Auto) 72.5 % (50.0-75.0) 11/22/17 05:45 Lymph % (Auto) 17.6 % (20.0-40.0) L 11/22/17 05:45 [place] % (Auto) 9.3 % (0.0-10.0) 11/22/17 05:45 Eos % (Auto) 0.4 % (0.0-4.0) 11/22/17 05:45 Baso % (Auto) 0.2 % (0.0-2.0) 11/22/17 05:45 Neut # (Auto) 6.3 K/uL (1.8-7.0) 11/22/17 05:45 Lymph # (Auto) 1.5 K/uL (1.0-4.3) 11/22/17 05:45 [place] # (Auto) 0.8 K/uL (0.0-0.8) 11/22/17 05:45 Eos # (Auto) 0.0 K/uL (0.0-0.7) 11/22/17 05:45 Baso # (Auto) 0.0 K/uL (0.0-0.2) 11/22/17 05:45 PT 11.5 Seconds (9.8-13.1) 11/21/17 10:22 INR 1.0 (0.9-1.2) 11/21/17 10:22 APTT 34.2 Seconds (25.6-37.1) 11/21/17 10:22 D-Dimer, Quantitative 312 ng/mlDDU (0-230) H 11/21/17 10:22 Sodium 137 mmol/l (132-148) 11/22/17 05:45 Potassium 3.8 MMOL/L (3.6-5.0) 11/22/17 05:45 Chloride 102 mmol/L (98-107) 11/22/17 05:45 Carbon Dioxide 26 mmol/L (22-30) 11/22/17 05:45 Anion Gap 13 (10-20) 11/22/17 05:45 BUN 6 mg/dl (9-20) L 11/22/17 05:45 Creatinine 0.6 mg/dl (0.8-1.5) L 11/22/17 05:45 Est GFR ( Amer) > 60 11/22/17 05:45 Est GFR (Non-Af Amer) > 60 11/22/17 05:45 Random Glucose 101 mg/dL (75-110) 11/22/17 05:45 Calcium 8.8 mg/dL (8.4-10.2) 11/22/17 05:45 Total Bilirubin 0.6 mg/dl (0.2-1.3) 11/22/17 05:45 AST 32 U/L (17-59) 11/22/17 05:45 ALT 28 U/L (21-72) 11/22/17 05:45 Alkaline Phosphatase 64 U/L (38-126) 11/22/17 05:45 Troponin I < 0.0120 ng/mL (0.00-0.120) 11/21/17 10:22 Total Protein 7.7 G/DL (6.3-8.2) 11/22/17 05:45 Albumin 3.9 g/dL (3.5-5.0) 11/22/17 05:45 Globulin 3.7 gm/dL (2.2-3.9) 11/22/17 05:45 Albumin/Globulin Ratio 1.1 (1.0-2.1) 11/22/17 05:45 Lipase 18 U/L (23-300) L 11/21/17 10:22 - Hospital Course Hospital Course: 42 y/o male with PMH of HIV (Not on meds) admitted for evaluation and treatment of back and abdominal pain. MRI lumbar spine: no disc herniation, central canal or stenosis, Large annular tear posterior segment of annulus of L5-S1. Patient made aware of his illness , all the questions were answered, patient agrees with discharge plan. Patient was given referral for PT and Pain management with Rx for tylenol and Ibuprofen. Discharge Exam - Head Exam Head Exam: ATRAUMATIC, NORMAL INSPECTION, NORMOCEPHALIC - Eye Exam Eye Exam: Normal appearance - ENT Exam ENT Exam: Mucous Membranes Moist, Normal Oropharynx - Neck Exam Neck exam: Normal Inspection - Respiratory Exam Respiratory Exam: Clear to PA & Lateral, NORMAL BREATHING PATTERN, UNREMARKABLE. absent: Decreased Breath Sounds, Wheezes - Cardiovascular Exam Cardiovascular Exam: REGULAR RHYTHM, +S1, +S2 - GI/Abdominal Exam GI & Abdominal Exam: Normal Bowel Sounds, Soft. absent: Distended, Rigid, Tenderness - Extremities Exam Extremities exam: normal capillary refill, normal inspection - Back Exam Back exam: NORMAL INSPECTION. absent: CVA tenderness (L), CVA tenderness (R) - Neurological Exam Neurological exam: Alert, CN II-XII Intact, Oriented x3 - Psychiatric Exam Psychiatric exam: Normal Affect - Skin Skin Exam: Dry, Intact, Normal Color, Warm Discharge Plan - Discharge Medications Prescriptions: Acetaminophen [Tylenol] 1 g PO Q8H #21 capsule Ibuprofen 800 mg PO Q8H #21 tablet - Follow Up Plan Condition: GOOD Disposition: HOME/ ROUTINE Instructions: Low Back Pain (DC), Acute Abdomen (Belly Pain), Adult (DC), Acute Abdominal Pain (DC), Acute Abdominal Pain (GEN), Back Pain (GEN) Additional Instructions: Follow up with Dr. Edwards, 11/27/17 at 9:00 am Pain management referral given to patient (Patient has to call [phone] for pain management appt screening with nurse) PT referral given to patient Rx to pharmacy for Tylenol and Ibuprofen given Referrals: [facility] [Outside] Linwood Edwards MD [Staff Provider] -
[2017-11-22 14:11] LABS: BARBITURATES, UR NEGATIVE (NEGATIVE); BENZODIAZEPINES, UR POSITIVE (NEGATIVE); OPIATES, UR POSITIVE (NEGATIVE); PHENCYCLIDINE, UR NEGATIVE (NEGATIVE)
[2017-11-22 18:40] LABS: % CD4 (T HELPER CELL) 11 Percent (30-61); % CD8 (SUPPRESSOR T CELL) 51 Percent (12-42); ABSOLUTE CD4 CELLS 129 Cells/mcL (490-1740); ABSOLUTE CD8 CELLS 582 Cells/mcL (180-1170); ABSOLUTE LYMPHOCYTES 1140 Cells/mcL (850-3900); HELPER/SUPPRESSOR RATIO 0.22 Ratio (0.86-5.00)
--- NOTE | 2017-11-28 14:52 | PQF ---
PROVIDER RESPONSE TEXT: Pt has AIDS REVIEWER QUERY TEXT: HIV Clarification and Associated Conditions HIV (Human immunodeficiency virus) is documented in the medical record. Please specify the type Such as: -- Acquired immune deficiency syndrome [AIDS] -- ACHM-fjjlnbt-dppwywx complex [ARC] -- Symptomatic -- Asymptomatic -- With current or previous HIV-related condition (please specify related condition) -- Exposure to HIV -- Inconclusive serologic evidence of HIV -- Other, please specify Also please include any associated conditions, if applicable. The patient's Clinical Indicators include: xxx Query created by: Breana Lima on 11/23/2017 3:38 PM Electronically signed by: Porsche Nassar MD 11/28/2017 2:49 PM
== END 2017-11-22 15:35 | disposition home or self-care (01) ==
LOC: H.ER 09:09 → H.ERHOLD 17:05 → H.MEDSURG1 19:00
PROVIDERS: ADMIT Family Medicine Geriatric Medicine; ATTEND Family Medicine Geriatric Medicine
DX: M51.37 Other intervertebral disc degeneration, lumbosacral region (principal); R10.9 Unspecified abdominal pain; B20 Human immunodeficiency virus [HIV] disease; N62 Hypertrophy of breast
CPT/HCPCS: 36415; 71275; 72146; 72148; 76705; 80053; 80324; 80345; 80346; 80349; 80353; 80358; 80361; 83690; 83992; 84484; 85025; 85378; 85610; 85730; 86360; 87040; 87149; 87181; 87205; 93005; 96361; 96365; 96372; 96375; 96376; 97161; 99285; G0378; G8978; G8979; J0456; J0696; J1170; J1650; J1885; J2270; J2405; J7030; Q9967